=== PATIENT | male | born 1995 | race Caucasian/White ===

== ENCOUNTER 2018-08-16 02:51 | Inpatient (IN) | payer OTHER ==
[~2018-08-16] VITALS: Ht 182.9 cm; Wt 63.5 kg
[~2018-08-16 02:51] MED LIST: ACET500 PO; ATOM60 PO; Bactrim Ds Tab1 EACH PO; CEPH500 PO; CLON.1 PO; CLON.2 PO; CLON.3 PO; CLON1 PO; DOCU100 PO; HYDACE5 PO; IBUP400 PO; IBUP600 PO; Keflex500 MG PO; OLAN2.5 PO; OLAN20; OLAN7.5 PO; PRODEXEL PO; RISP1 PO; TENEX1 MG PO; Ventolin/Prove6.7 GM INH; Zithromax250 MG PO
[2018-08-16 04:30] LABS: BASOPHILS ABSOLUTE AUTO 0.05 K/mm3 (0.00-0.23); BASOPHILS PERCENT AUTO 0 % (0-2); EOSINOPHILS PERCENT AUTO 1 % (0-6); Hematocrit 47.4 % (37.0-53.0); IMMATURE GRAN ABSOLUTE AUTO 0.04 K/mm3 (0.00-0.10); IMMATURE GRAN PERCENT AUTO 0 % (0-1); LYMPHOCYTES ABSOLUTE AUTO 2.87 K/mm3 (0.84-5.20); LYMPHOCYTES PERCENT AUTO 21 % (21-46); MONOCYTES ABSOLUTE AUTO 1.32 K/mm3 (0.16-1.47); MONOCYTES PERCENT AUTO 9 % (4-13); Mean Corpuscular HGB 28.3 pg (26.0-34.0); Mean Corpuscular HGB Conc 33.8 g/dL (31.5-36.5); Mean Corpuscular Volume 84 fL (80-100); Mean Platelet Volume 10.2 fL (9.1-12.4); NEUTROPHILS ABSOLUTE AUTO 9.51 K/mm3 (1.96-9.15); NEUTROPHILS PERCENT AUTO 68 % (41-73); Platelet Count 267 K/mm3 (150-400); RDW Coefficient Variation 12.9 % (11.7-14.2); RDW Standard Deviation 39.8 fL (35.1-46.3); Red Blood Cell Count 5.66 M/mm3 (4.30-5.90); White Blood Cell Count 13.99 K/mm3 (4.00-11.30)
[2018-08-16 04:47] LABS: Alanine Aminotransfer (ALT/SGP 21 U/L (12-78); Albumin, Blood 4.6 g/dL (3.4-5.0); Alk Phos 112 U/L (50-136); Anion Gap 8 mmol/L (6-16); Aspartate Aminotrans (AST/SGOT 18 U/L (12-37); Bilirubin, Total 0.8 mg/dL (0.1-1.0); Blood Urea Nitrogen 13 mg/dL (8-24); Bun/Creatinine Ratio 15.3 (12.0-20.0); CO2, Blood 25 mmol/L (21-32); Calcium, Blood 9.9 mg/dL (8.5-10.1); Chloride, Blood 106 mmol/L (98-108); Creatinine, Blood 0.85 mg/dL (0.60-1.20); Globulin, Blood 4.5 g/dL (2.2-4.0); Glomerular Filtration Rate >60 (60-); Glucose, Blood 66 mg/dL (70-99); Potassium, Blood 3.1 mmol/L (3.5-5.5); Sodium, Blood 139 mmol/L (136-145); Total Protein, Blood 9.1 g/dL (6.4-8.2)
--- NOTE | 2018-08-16 06:46 | NUR ---
ADMISSION: REPORT RECIEVED FROM ED RN. PT TO UNIT AT ABOUT 0540. UPON ASSESSMENT PT IS IN NO VISABLE DISTRESS. REPORTS PAIN AT R INDEX FINGER. HR 105, OTHERWISE VSS. PT ORIENTED TO ROOM. AYALA Geronimo RN, DRESSED PT FINGER WITH GUAZE. REDNESS AND SWELLING, SCANT DRAINAGE. ANTIBIOTICS STARTED. SURGICAL CONSULT CALLED. WILL CTM AND REPORT TO DAY RN.
[2018-08-16] MEDS ORDERED: CLIN300 PO (12:09)
[2018-08-16] MEDS ORDERED: Bactrim Ds Tab1 EACH PO (12:09)
[2018-08-16 13:05] LABS: Hematocrit 41.7 % (37.0-53.0); Hemoglobin 14.2 g/dL (13.5-17.5); Mean Corpuscular HGB 28.3 pg (26.0-34.0); Mean Corpuscular HGB Conc 34.1 g/dL (31.5-36.5); Mean Corpuscular Volume 83 fL (80-100); Mean Platelet Volume 10.4 fL (9.1-12.4); Platelet Count 236 K/mm3 (150-400); RDW Coefficient Variation 12.9 % (11.7-14.2); RDW Standard Deviation 38.8 fL (35.1-46.3); Red Blood Cell Count 5.02 M/mm3 (4.30-5.90); White Blood Cell Count 13.08 K/mm3 (4.00-11.30)
[2018-08-16 13:23] LABS: Alanine Aminotransfer (ALT/SGP 20 U/L (12-78); Albumin, Blood 3.7 g/dL (3.4-5.0); Alk Phos 90 U/L (50-136); Anion Gap 8 mmol/L (6-16); Aspartate Aminotrans (AST/SGOT 20 U/L (12-37); Bilirubin, Total 0.7 mg/dL (0.1-1.0); Blood Urea Nitrogen 12 mg/dL (8-24); Bun/Creatinine Ratio 12.7 (12.0-20.0); CO2, Blood 22 mmol/L (21-32); Calcium, Blood 8.7 mg/dL (8.5-10.1); Chloride, Blood 109 mmol/L (98-108); Creatinine, Blood 0.95 mg/dL (0.60-1.20); Globulin, Blood 3.7 g/dL (2.2-4.0); Glomerular Filtration Rate >60 (60-); Glucose, Blood 115 mg/dL (70-99); Potassium, Blood 3.6 mmol/L (3.5-5.5); Sodium, Blood 139 mmol/L (136-145); Total Protein, Blood 7.4 g/dL (6.4-8.2)
--- NOTE | 2018-08-16 16:37 | NUR ---
SHIFT SUMMARY PT A&OX4, VSS. POD#1 I&D RIGHT INDEX FINGER, SPLINT, GAUZE & JAYSON WRAP, APPEARS CDI. PAIN MANAGED WITH 10 MG NORCO. ATUL PO, DENIES N&V. INDEPENDENTIN ROOM AND OFF UNIT. VOIDING WELL. WILL CTM & TX PER EMAR UNTIL REPORT GIVEN TO ONCOMING NOC RN.
--- NOTE | 2018-08-17 04:09 | NUR ---
SHIFT SUMMARY PT A&O X4 T/O SHIFT. NO ACUTE CHANGES. POD# 1 I&D R INDEX FINGER; DRESSING AND SPLINT INTACT; PT REPEATEDLY ENCOURAGED TO LEAVE JAYSON WRAP INTACT; PT NOTED TO BE UNWRAPPING AND RE-WRAPPING JAYSON OVER HAND/PALM. NO DRAINAGE NOTED. PAIN MANGED PER EMAR. PT ENCOURAGED TO ELEVATE, REST AND ICE HAND TO HELP MANGE PAIN AND SWELLING. PPPX4. PT INDEPENDENT; OFF UNIT X1. PT FREQUENTLY NOTED EATING CANDY OR REQUESTED ITEMS FROM PANTRY. CALL LIGHT IN REACH; PT DEMONSTRATES USE. PT REPORTED INSOMNIA AND REQUESTED SLEEP AID; TELEPHONE ORDER FROM DR. MCCORMICK RECIEVED FOR ATIVAN. WCTM UNTIL REPORT TO DAY SHIFT RN.
[2018-08-17 05:27] LABS: Hematocrit 40.8 % (37.0-53.0); Hemoglobin 13.6 g/dL (13.5-17.5); Mean Corpuscular HGB 27.7 pg (26.0-34.0); Mean Corpuscular HGB Conc 33.3 g/dL (31.5-36.5); Mean Corpuscular Volume 83 fL (80-100); Mean Platelet Volume 10.7 fL (9.1-12.4); Platelet Count 233 K/mm3 (150-400); RDW Coefficient Variation 13.2 % (11.7-14.2); RDW Standard Deviation 39.6 fL (35.1-46.3); Red Blood Cell Count 4.91 M/mm3 (4.30-5.90); White Blood Cell Count 12.54 K/mm3 (4.00-11.30)
[2018-08-17 05:38] LABS: Vancomycin, Trough 11.4 ug/mL (5.0-10.0)
[2018-08-17 05:47] LABS: Anion Gap 8 mmol/L (6-16); Blood Urea Nitrogen 10 mg/dL (8-24); Bun/Creatinine Ratio 11.6 (12.0-20.0); CO2, Blood 21 mmol/L (21-32); Calcium, Blood 8.5 mg/dL (8.5-10.1); Chloride, Blood 107 mmol/L (98-108); Creatinine, Blood 0.86 mg/dL (0.60-1.20); Glomerular Filtration Rate >60 (60-); Glucose, Blood 106 mg/dL (70-99); Potassium, Blood 3.6 mmol/L (3.5-5.5); Sodium, Blood 136 mmol/L (136-145)
--- NOTE | 2018-08-17 09:41 | NUR ---
08/17/18 0941 Jenny Shields VERIFICATIONS: EDIT CHART PER ORD.ROSANGELA.
--- NOTE | 2018-08-17 16:28 | NUR ---
SUMM- PT A/O X3, SLEPT UNTIL 1100 THIS AM- AGGITATED AT TIMES WHEN AWOKEN. FIDGITY DURING WAKING HOURS, AND EDGEY. SPEECH HARD TO UNDERSTAND, FAST AND THICK. PT HAS A LARGE APPETITE REQUESTS FOOD EVERY HOUR WHILE AWAKE. DRINKS LG AMOUNTS OF PEPSI AND NOTHING ELSE. DECLINED PAIN MEDS, HAD NOTABLE PAIN DURING DRESSING CHANGE WITH DR TAY, BUT ONCE WRAPPED, DOESN'T HURT. DR INSTRUCTED PT ON DOING HIS OWN DRSG CHANGE AND CLEANING WITH H2O2. SUPPLIES IN PT'S ROOM FOR HIM TO TAKE HOME FOR ANTICIPATED DC TOMORROW. PT GOES OUT TO SMOKE EVERY 2-4 HOURS. COMES BACK HAPPY AND RELAXED, LIKEY SMOKING "DAB" HE MENTIONED TO RN EARLIER. WILL REPORT DAYS EVENTS TO NOC RN.
--- NOTE | 2018-08-18 07:32 | NUR ---
SUMMARY PT WITH NEW IV SITE TONIGHT. IV ANTIBIOTICS INFUSING. PT PLANS FOR DISCHARGE HOME TODAY. NO REQUEST FOR PAIN MEDS TONIGHT. WHEN AWAKE. EATING FREQUENTLY AND DRINKING PEPSI WITHOUT NAUSEA.
--- NOTE | 2018-08-18 11:16 | NUR ---
PT DISCHARGED. BELONGINGS WITH PATIENT. VERBALIZED UNDERSTANDING OF DISCHARGE INSTRUCTIONS. WALKED OUT INDEPENDENTLY. PRESCRTITIONS SLIPS WITH PT.
== END 2018-08-18 11:20 | disposition home or self-care (01) | DRG 854 ==
LOC: ER 02:51 → SURS 04:40
PROVIDERS: Emergency Medicine; Internal Medicine; Orthopaedic Surgery; ADMIT Internal Medicine
PROC: 0LQ70ZZ Repair Right Hand Tendon, Open Approach (ICD-10-PCS; principal; 2018-08-16 07:45)
DX: A41.02 Sepsis due to Methicillin resistant Staphylococcus aureus (principal); L02.511 Cutaneous abscess of right hand; S66.320A Laceration of extensor muscle, fascia and tendon of right index finger at wrist and hand level, initial encounter; F32.9 Major depressive disorder, single episode, unspecified; F90.9 Attention-deficit hyperactivity disorder, unspecified type; E87.6 Hypokalemia; F17.210 Nicotine dependence, cigarettes, uncomplicated
CPT/HCPCS: 36415; 73120; 80048; 80053; 80202; 83605; 85025; 85027; 87040; 87070; 87075; 87077; 87147; 87186; 87205; 96374; 99285-25; J0690; J0696; J2250; J2543; J3010; J3370; J7050; J7120; Q0163

== ENCOUNTER 2019-05-07 20:04 | Emergency (ER) | payer OTHER ==
[~2019-05-07] VITALS: Ht 182.9 cm; Wt 68.0 kg
[~2019-05-07 20:04] MED LIST changes: +CLIN300 PO
[2019-05-07] MEDS ORDERED: CRUTCH4 XX (21:47)
[2019-05-07] MEDS ORDERED: KETO10 PO (21:47)
== END 2019-05-07 22:10 | disposition home or self-care (01) ==
LOC: ER 20:04
DX: S93.402A Sprain of unspecified ligament of left ankle, initial encounter (principal); X50.9XXA Other and unspecified overexertion or strenuous movements or postures, initial encounter; F17.210 Nicotine dependence, cigarettes, uncomplicated
CPT/HCPCS: 73610; 99283-25

== ENCOUNTER → 2019-07-03 | Outpatient (CLI) | payer OTHER ==
[~2019-07-03] MED LIST changes: +CRUTCH4 XX; +KETO10 PO
[2019-07-03 12:19] LABS: BASOPHILS ABSOLUTE AUTO 0.04 K/mm3 (0.00-0.23); BASOPHILS PERCENT AUTO 0 % (0-2); EOSINOPHILS PERCENT AUTO 0 % (0-6); Hematocrit 47.5 % (37.0-53.0); Hemoglobin 15.7 g/dL (13.5-17.5); IMMATURE GRAN ABSOLUTE AUTO 0.06 K/mm3 (0.00-0.10); IMMATURE GRAN PERCENT AUTO 0 % (0-1); LYMPHOCYTES ABSOLUTE AUTO 2.24 K/mm3 (0.84-5.20); LYMPHOCYTES PERCENT AUTO 15 % (21-46); MONOCYTES ABSOLUTE AUTO 2.13 K/mm3 (0.16-1.47); MONOCYTES PERCENT AUTO 14 % (4-13); Mean Corpuscular HGB 28.1 pg (26.0-34.0); Mean Corpuscular HGB Conc 33.1 g/dL (31.5-36.5); Mean Corpuscular Volume 85 fL (80-100); Mean Platelet Volume 11.6 fL (9.1-12.4); NEUTROPHILS ABSOLUTE AUTO 10.39 K/mm3 (1.96-9.15); NEUTROPHILS PERCENT AUTO 70 % (41-73); Platelet Count 179 K/mm3 (150-400); RDW Coefficient Variation 13.9 % (11.7-14.2); RDW Standard Deviation 43.4 fL (35.1-46.3); Red Blood Cell Count 5.59 M/mm3 (4.30-5.90); White Blood Cell Count 14.86 K/mm3 (4.00-11.30)
== END | disposition home or self-care (01) ==
LOC: LAB SHORT 11:18 → LAB 11:18
PROVIDERS: Family Medicine
DX: R50.9 Fever, unspecified (principal)
CPT/HCPCS: 85025

== ENCOUNTER → 2020-03-17 | Outpatient (CLI) | payer OTHER ==
[2020-03-21 13:10] LABS: CHLAMYDIA TRACHOMATIS, NAA Positive (Negative); NEISSERIA GONORRHOEAE, NAA Positive (Negative)
== END | disposition home or self-care (01) ==
LOC: LAB EV 17:28 → LAB SHORT 17:28
PROVIDERS: Family Medicine
DX: R30.9 Painful micturition, unspecified (principal)
CPT/HCPCS: 87077; 87086; 87185; 87491; 87591

== ENCOUNTER 2020-05-17 02:32 | Emergency (ER) | payer OTHER ==
[~2020-05-17] VITALS: Ht 182.9 cm; Wt 68.0 kg
== END 2020-05-17 04:00 | disposition home or self-care (01) ==
LOC: ER 02:32
DX: J40 Bronchitis, not specified as acute or chronic (principal); F17.210 Nicotine dependence, cigarettes, uncomplicated
CPT/HCPCS: 94640; 99283

== ENCOUNTER → 2022-05-27 | Outpatient (CLI) | payer OTHER ==
[2022-05-27 14:14] LABS: BASOPHILS ABSOLUTE AUTO 0.05 K/mm3 (0.00-0.23); BASOPHILS PERCENT AUTO 0 % (0-2); EOSINOPHILS ABSOLUTE AUTO 0.07 K/mm3 (0.00-0.68); EOSINOPHILS PERCENT AUTO 0 % (0-6); Hematocrit 45.6 % (37.0-53.0); Hemoglobin 15.6 g/dL (13.5-17.5); IMMATURE GRAN ABSOLUTE AUTO 0.08 K/mm3 (0.00-0.10); IMMATURE GRAN PERCENT AUTO 1 % (0-1); LYMPHOCYTES ABSOLUTE AUTO 2.01 K/mm3 (0.84-5.20); LYMPHOCYTES PERCENT AUTO 12 % (21-46); MONOCYTES PERCENT AUTO 7 % (4-13); Mean Corpuscular HGB 28.7 pg (26.0-34.0); Mean Corpuscular HGB Conc 34.2 g/dL (31.5-36.5); Mean Corpuscular Volume 84 fL (80-100); Mean Platelet Volume 9.8 fL (9.1-12.4); NEUTROPHILS ABSOLUTE AUTO 13.08 K/mm3 (1.96-9.15); NEUTROPHILS PERCENT AUTO 80 % (41-73); Platelet Count 246 K/mm3 (150-400); RDW Coefficient Variation 14.1 % (11.7-14.2); RDW Standard Deviation 42.9 fL (35.1-46.3); Red Blood Cell Count 5.43 M/mm3 (4.30-5.90); White Blood Cell Count 16.39 K/mm3 (4.00-11.30)
[2022-05-27 14:23] LABS: Albumin, Blood 4.2 g/dL (3.4-5.0); Bilirubin, Total 0.4 mg/dL (0.1-1.0); Bun/Creatinine Ratio 13.9 (12.0-20.0); Calcium, Blood 9.3 mg/dL (8.5-10.1); Creatinine, Blood 0.79 mg/dL (0.60-1.20); Globulin, Blood 4.4 g/dL (2.2-4.0); Potassium, Blood 3.5 mmol/L (3.5-5.5); Total Protein, Blood 8.6 g/dL (6.4-8.2)
== END | disposition home or self-care (01) ==
LOC: LAB 14:09 → LAB SHORT 14:09
PROVIDERS: Physician Assistant Medical
DX: I89.1 Lymphangitis (principal)
CPT/HCPCS: 80053; 85025

== ENCOUNTER → 2022-05-28 | Outpatient (CLI) | payer OTHER ==
[2022-05-28 09:15] LABS: BASOPHILS ABSOLUTE AUTO 0.05 K/mm3 (0.00-0.23); BASOPHILS PERCENT AUTO 0 % (0-2); EOSINOPHILS ABSOLUTE AUTO 0.07 K/mm3 (0.00-0.68); EOSINOPHILS PERCENT AUTO 1 % (0-6); Hematocrit 45.7 % (37.0-53.0); Hemoglobin 15.6 g/dL (13.5-17.5); IMMATURE GRAN ABSOLUTE AUTO 0.05 K/mm3 (0.00-0.10); IMMATURE GRAN PERCENT AUTO 0 % (0-1); LYMPHOCYTES ABSOLUTE AUTO 1.83 K/mm3 (0.84-5.20); LYMPHOCYTES PERCENT AUTO 15 % (21-46); MONOCYTES ABSOLUTE AUTO 0.83 K/mm3 (0.16-1.47); MONOCYTES PERCENT AUTO 7 % (4-13); Mean Corpuscular HGB 28.9 pg (26.0-34.0); Mean Corpuscular HGB Conc 34.1 g/dL (31.5-36.5); Mean Corpuscular Volume 85 fL (80-100); NEUTROPHILS ABSOLUTE AUTO 9.26 K/mm3 (1.96-9.15); NEUTROPHILS PERCENT AUTO 77 % (41-73); Platelet Count 253 K/mm3 (150-400); RDW Coefficient Variation 14.1 % (11.7-14.2); RDW Standard Deviation 43.5 fL (35.1-46.3); White Blood Cell Count 12.09 K/mm3 (4.00-11.30)
== END | disposition home or self-care (01) ==
LOC: LAB SHORT 09:11 → LAB 09:11
PROVIDERS: Physician Assistant Medical
DX: I89.1 Lymphangitis (principal)
CPT/HCPCS: 85025

== ENCOUNTER 2025-08-05 05:21 | Inpatient (IN) | payer OTHER ==
[~2025-08-05] VITALS: Ht 182.9 cm; Wt 73.2 kg
[2025-08-05 06:10] LABS: BASOPHILS ABSOLUTE AUTO 0.06 K/mm3 (0.00-0.23); BASOPHILS PERCENT AUTO 0 % (0-2); EOSINOPHILS ABSOLUTE AUTO 0.01 K/mm3 (0.00-0.68); EOSINOPHILS PERCENT AUTO 0 % (0-6); Hematocrit 44.1 % (37.0-53.0); Hemoglobin 15.1 g/dL (13.5-17.5); IMMATURE GRAN ABSOLUTE AUTO 0.06 K/mm3 (0.00-0.10); IMMATURE GRAN PERCENT AUTO 0 % (0-1); LYMPHOCYTES ABSOLUTE AUTO 1.20 K/mm3 (0.84-5.20); LYMPHOCYTES PERCENT AUTO 6 % (21-46); MONOCYTES ABSOLUTE AUTO 1.50 K/mm3 (0.16-1.47); MONOCYTES PERCENT AUTO 7 % (4-13); Mean Corpuscular HGB Conc 34.2 g/dL (31.5-36.5); Mean Corpuscular Volume 82 fL (80-100); NEUTROPHILS ABSOLUTE AUTO 17.48 K/mm3 (1.96-9.15); NEUTROPHILS PERCENT AUTO 86 % (41-73); NRBC ABSOLUTE 0.00 K/mm3 (0.00-0.02); NRBC Auto 0.0 /100 WBC (0.0-0.2); Platelet Count 235 K/mm3 (150-400); RDW Coefficient Variation 13.5 % (11.7-14.2); RDW Standard Deviation 40.5 fL (35.1-46.3)
[2025-08-05 06:30] LABS: Alanine Aminotransfer (ALT/SGP 20.0 U/L (12-78); Albumin, Blood 4.2 g/dL (3.4-5.0); Albumin/Globulin Ratio 1.0 (0.8-1.8); Anion Gap 10.0 mmol/L (3-11); Aspartate Aminotrans (AST/SGOT 26.0 U/L (12-37); Bilirubin, Total 1.0 mg/dL (0.1-1.0); Blood Urea Nitrogen 15.0 mg/dL (8-24); CO2, Blood 22.0 mmol/L (21-32); Calcium, Blood 9.8 mg/dL (8.5-10.1); Chloride, Blood 106.0 mmol/L (98-108); Creatinine, Blood 0.68 mg/dL (0.60-1.20); Globulin, Blood 4.0 g/dL (2.2-4.0); Glucose, Blood 113.0 mg/dL (70-99); Potassium, Blood 4.1 mmol/L (3.5-5.5); Sodium, Blood 134.0 mmol/L (136-145); Total Protein, Blood 8.2 g/dL (6.4-8.2)
[2025-08-05] MEDS ORDERED: Ondansetron HCl 2 MG / ML 2ML Vial IV ONE (08:20)
[2025-08-05] MEDS ORDERED: Ketorolac Tromethamine 15mg Vial IV ONE (08:20)
[2025-08-05] MEDS ORDERED: Morphine Sulfate 4 MG/1 ML Injection IV ONE (08:20)
[2025-08-05] MEDS ORDERED: NS 1,000 ML IV SCH ×2 (08:20→11:25)
[2025-08-05] MEDS ORDERED: Vancomycin (Pharmacy Consult) IV PRN (09:40)
[2025-08-05] MEDS ORDERED: CeFAZolin Sodium 2,000 MG in NS 100 ML IV ONE (10:00)
[2025-08-05] MEDS ORDERED: Vancomycin (Pharmacy Consult) IV SCH (11:10)
[2025-08-05] MEDS ORDERED: FLU VACC TS2025-26(6MOS UP)/PF 45 MCG/0.5 ML SYRINGE IM SCH (11:10)
[2025-08-05 13:21] VITALS: BP 155/93
[2025-08-05] MEDS ORDERED: FentaNYL Citrate 50 MCG/ML 2 ML Injection IV PRN ×2 (13:50→16:00)
[2025-08-05] MEDS ORDERED: Morphine Sulfate 4 MG/1 ML Injection IV PRN (13:50)
[2025-08-05] MEDS ORDERED: LORazepam 2 MG/ML 1ML Injection IV PRN (15:35)
[2025-08-05] MEDS ORDERED: HYDROmorphone HCl/Pf 1MG SYR IV PRN (15:35)
[2025-08-05 15:57] VITALS: BP 153/107
[2025-08-05] MEDS ORDERED: FentaNYL Citrate 50 MCG/ML 2 ML Injection IV ONE (16:00)
[2025-08-05] MEDS ORDERED: CeFAZolin Sodium 2,000 MG in NS 100 ML IV SCH (16:00)
--- NOTE | 2025-08-05 19:35 | NUR ---
ADMIT/SHIFT SUMMARY PT ADMITTED TODAY D/T CELLULITIS OF RIGHT KNEE. DR. GERMAN CONSULTED, PT TO BE NPO AT MIDNIGHT FOR POSSIBLE I&D TOMORROW. PT PAIN MANAGED WITH DILAUDED, PT REFUSED FENTANYL. PT ADMITS TO INJECTING METH ON 08/03/25. PT A&OX4, NORMALLY INDEPENDENT, BUT HAS BED REST ORDERED. PT EDUCATED ON IMPORTANCE OF USING THE CALL LIGHT AND NOT TO GET OOB WITH OUT HELP OF NURSING STAFF.
[2025-08-05 19:53] VITALS: BP 147/91
[2025-08-05] MEDS ORDERED: NS 250 ML IV PRN (20:05)
[2025-08-05] MEDS ORDERED: Lactobacil 2-S.Thermo-Bifido 1 1 Cap PO SCH (21:00)
[2025-08-05 23:47] VITALS: BP 149/102
[2025-08-06] VITALS (16 sets, daily range): BP systolic 123–158; BP diastolic 82–103
[2025-08-06] MEDS ORDERED: Piperacillin/Tazobactam Sod 3.375 GM in NS 100 ML IV SCH
[2025-08-06 05:12] LABS: BASOPHILS ABSOLUTE AUTO 0.10 K/mm3 (0.00-0.23); BASOPHILS PERCENT AUTO 0 % (0-2); EOSINOPHILS ABSOLUTE AUTO 0.11 K/mm3 (0.00-0.68); EOSINOPHILS PERCENT AUTO 0 % (0-6); Hematocrit 42.2 % (37.0-53.0); Hemoglobin 14.7 g/dL (13.5-17.5); IMMATURE GRAN ABSOLUTE AUTO 0.19 K/mm3 (0.00-0.10); IMMATURE GRAN PERCENT AUTO 1 % (0-1); LYMPHOCYTES ABSOLUTE AUTO 1.88 K/mm3 (0.84-5.20); LYMPHOCYTES PERCENT AUTO 8 % (21-46); MONOCYTES ABSOLUTE AUTO 2.50 K/mm3 (0.16-1.47); MONOCYTES PERCENT AUTO 10 % (4-13); Mean Corpuscular HGB Conc 34.8 g/dL (31.5-36.5); Mean Corpuscular Volume 83 fL (80-100); NEUTROPHILS ABSOLUTE AUTO 20.25 K/mm3 (1.96-9.15); NEUTROPHILS PERCENT AUTO 81 % (41-73); NRBC ABSOLUTE 0.00 K/mm3 (0.00-0.02); NRBC Auto 0.0 /100 WBC (0.0-0.2); Platelet Count 250 K/mm3 (150-400); RDW Coefficient Variation 13.6 % (11.7-14.2); RDW Standard Deviation 40.9 fL (35.1-46.3)
[2025-08-06 05:33] LABS: Alanine Aminotransfer (ALT/SGP 19.0 U/L (12-78); Albumin, Blood 3.1 g/dL (3.4-5.0); Albumin/Globulin Ratio 0.7 (0.8-1.8); Anion Gap 10.0 mmol/L (3-11); Aspartate Aminotrans (AST/SGOT 21.0 U/L (12-37); Bilirubin, Total 1.2 mg/dL (0.1-1.0); Blood Urea Nitrogen 7.0 mg/dL (8-24); CO2, Blood 23.0 mmol/L (21-32); Calcium, Blood 9.2 mg/dL (8.5-10.1); Chloride, Blood 102.0 mmol/L (98-108); Creatinine, Blood 0.73 mg/dL (0.60-1.20); Globulin, Blood 4.4 g/dL (2.2-4.0); Glucose, Blood 101.0 mg/dL (70-99); Potassium, Blood 4.0 mmol/L (3.5-5.5); Sodium, Blood 131.0 mmol/L (136-145); Total Protein, Blood 7.5 g/dL (6.4-8.2)
--- NOTE | 2025-08-06 06:04 | NUR ---
NO ACUTE CHANGES DURING SHIFT. PATIENT ALERT AND ORIENTED X4, ABLE TO MAKE NEEDS KNOWN. PATIENT ABLE TO TURN SELF IN BED; BEDREST ORDER IN PLACE. RLE CELLULITIS.. KNEE ELEVATED MUCH PATIENT ALLOWED. PAIN MEDICATION GIVEN-SEE EMAR. PATIENT ON ROOM AIR SATING >95%. NPO AFTER MIDNIGHT. IV ANTIBIOTICS GIVEN. BED IN LOW POSITION WITH WHEELS LOCKED. CALL LIGHT WITHIN REACH.
[2025-08-06] MEDS ORDERED: Enoxaparin 40 MG/0.4 ML SYR SC SCH (09:00)
[2025-08-06 11:40] LABS: Vancomycin, Trough 13.4 ug/mL (5.0-10.0)
--- NOTE | 2025-08-06 13:25 | NUR ---
PT TAKEN TO SURGERY.
[2025-08-06] MEDS ORDERED: Midazolam HCl 1MG / ML 2ML Vial ONE (13:57)
[2025-08-06] MEDS ORDERED: FentaNYL Citrate 50 MCG/ML 2 ML Injection ONE (13:57)
[2025-08-06] MEDS ORDERED: HYDROmorphone HCl/Pf 1MG SYR ONE (14:55)
--- NOTE | 2025-08-06 18:09 | NUR ---
SHIFT SUMMARY PT IS A/OX4. BEDREST AT THIS TIME. I&D COMPLETED THIS AFTERNOON. HEMOVAC AND IMMOBILIZER IN PLACE. USING URINAL AT BEDSIDE. MEDICATED FOR PAIN WITH FENTANYL AND DILUADID PER OCT. IV ANTIBIOTICS GIVEN PER OCT.
[2025-08-06] MEDS ORDERED: Vancomycin (Pharmacy Consult) IV SCH (19:20)
--- NOTE | 2025-08-07 04:18 | NUR ---
PATIENT ALERT AND ORIENTED X4, ABLE TO MAKE NEEDS KNOWN. IMMOBILIZER AND HEMOVAC TO R KNEE. IV ANTIBIOTICS GIVEN. MEDICATED FOR PAIN AND ANXIETY, SEE EMAR. PATIENT USES URINAL. BED IN LOW POSITION WITH WHEELS LOCKED. CALL LIGHT WITHIN REACH.
[2025-08-07 04:45] VITALS: BP 145/102
[2025-08-07 05:22] LABS: BASOPHILS ABSOLUTE AUTO 0.08 K/mm3 (0.00-0.23); BASOPHILS PERCENT AUTO 0 % (0-2); EOSINOPHILS ABSOLUTE AUTO 0.17 K/mm3 (0.00-0.68); EOSINOPHILS PERCENT AUTO 1 % (0-6); Hematocrit 38.0 % (37.0-53.0); Hemoglobin 13.0 g/dL (13.5-17.5); IMMATURE GRAN ABSOLUTE AUTO 0.10 K/mm3 (0.00-0.10); IMMATURE GRAN PERCENT AUTO 1 % (0-1); LYMPHOCYTES ABSOLUTE AUTO 1.94 K/mm3 (0.84-5.20); LYMPHOCYTES PERCENT AUTO 10 % (21-46); MONOCYTES ABSOLUTE AUTO 1.79 K/mm3 (0.16-1.47); MONOCYTES PERCENT AUTO 9 % (4-13); Mean Corpuscular HGB Conc 34.2 g/dL (31.5-36.5); Mean Corpuscular Volume 83 fL (80-100); NEUTROPHILS ABSOLUTE AUTO 14.94 K/mm3 (1.96-9.15); NEUTROPHILS PERCENT AUTO 79 % (41-73); NRBC ABSOLUTE 0.00 K/mm3 (0.00-0.02); NRBC Auto 0.0 /100 WBC (0.0-0.2); Platelet Count 261 K/mm3 (150-400); RDW Coefficient Variation 13.5 % (11.7-14.2); RDW Standard Deviation 40.8 fL (35.1-46.3)
[2025-08-07 05:39] LABS: Alanine Aminotransfer (ALT/SGP 18.0 U/L (12-78); Albumin, Blood 2.9 g/dL (3.4-5.0); Albumin/Globulin Ratio 0.7 (0.8-1.8); Anion Gap 8.0 mmol/L (3-11); Aspartate Aminotrans (AST/SGOT 15.0 U/L (12-37); Bilirubin, Total 0.5 mg/dL (0.1-1.0); Blood Urea Nitrogen 9.0 mg/dL (8-24); CO2, Blood 27.0 mmol/L (21-32); Calcium, Blood 9.3 mg/dL (8.5-10.1); Chloride, Blood 102.0 mmol/L (98-108); Creatinine, Blood 0.73 mg/dL (0.60-1.20); Globulin, Blood 4.4 g/dL (2.2-4.0); Glucose, Blood 109.0 mg/dL (70-99); Potassium, Blood 3.7 mmol/L (3.5-5.5); Sodium, Blood 133.0 mmol/L (136-145); Total Protein, Blood 7.3 g/dL (6.4-8.2)
[2025-08-07 07:18] VITALS: BP 107/77
[2025-08-07 11:21] LABS: Vancomycin, Trough 16.8 ug/mL (5.0-10.0)
[2025-08-07 16:03] VITALS: BP 124/76
--- NOTE | 2025-08-07 18:30 | NUR ---
SHIFT SUMMARY PT IS A/OX4. IMMOBILIZER AND HEMOVAC TO R KNEE. HEMOVAC WITH VERY LITTLE OUTPUT. POSITIVE BLOOD CULTURES, RECIEVING IV ANTIBIOTICS PER MAR. MEDICATED WITH DILAUDID, FENTANYL, AND OXYCODONE FOR PAIN PER MAR. USING URINAL AT BEDSIDE. WEIGHT BEARING AT TOLERATED.
[2025-08-07 19:40] VITALS: BP 126/78
--- NOTE | 2025-08-08 01:23 | NUR ---
PT INTERACTION PT RAISING BED UP HIGH TO MAXIMUM HEIGHT. PT EDUCATED ON IMPORTANCE OF FALL RPECAUTIONS AND DANGERS OF A FALL FROM THAT HEIGHT. PT VERBALIZED UNDERSTANDING TO EDUCATION, BUT CONTINUES TO LEAVE BED AT MAXIMUM HEIGHT AND REFUSES TO LOWER BED FURTHER.
[2025-08-08 03:04] VITALS: BP 123/83
--- NOTE | 2025-08-08 06:29 | NUR ---
UNIT TRUST MANAGER SUMMARY PT A&OX4, VSS. ABLE TO COMMUNICATE NEEDS APPROPRIATELY. PT HAS BEEN ASLEEP FOR MOST OF THE SHIFT. CHEST RISE/RESPIRATIONS NOTED. PT CONTINUES TO RECEIVE OXYCODONE, DILAUDID, AND ATIVAN PER EMAR. HEMOVAC TO R KNEE CONTINUES TO HAVE EXTREMELY LITTLE, ALMOST NO OUTPUT. THE SCANT OUTPUT NOTED APPEARS TO BE SANGUINEOUS, THOUGH PT CONTINUES TO BE VERY RESISTANT AND IRRITATED AT STAFF ON ATTEMPTS TO CHECK HEMOVAC. PT HAS REMAINED IRRITATED AT STAFF THROUGHOUT THE SHIFT AND HAS YELLED PROFANITIES AT STAFF DURING ROUNDS, MEDICATION PASSES, AND LAB DRAWS. BED WHEELS LOCKED, BED RAILS UP X 2, PERSONAL BELONGINGS AND CALL LIGHT WITHIN REACH FOR SAFETY.
[2025-08-08 06:37] LABS: BASOPHILS ABSOLUTE AUTO 0.06 K/mm3 (0.00-0.23); BASOPHILS PERCENT AUTO 1 % (0-2); EOSINOPHILS ABSOLUTE AUTO 0.28 K/mm3 (0.00-0.68); EOSINOPHILS PERCENT AUTO 3 % (0-6); Hematocrit 38.0 % (37.0-53.0); Hemoglobin 12.8 g/dL (13.5-17.5); IMMATURE GRAN ABSOLUTE AUTO 0.03 K/mm3 (0.00-0.10); IMMATURE GRAN PERCENT AUTO 0 % (0-1); LYMPHOCYTES ABSOLUTE AUTO 1.52 K/mm3 (0.84-5.20); LYMPHOCYTES PERCENT AUTO 14 % (21-46); MONOCYTES ABSOLUTE AUTO 1.17 K/mm3 (0.16-1.47); MONOCYTES PERCENT AUTO 11 % (4-13); Mean Corpuscular HGB Conc 33.7 g/dL (31.5-36.5); Mean Corpuscular Volume 82 fL (80-100); NEUTROPHILS ABSOLUTE AUTO 7.59 K/mm3 (1.96-9.15); NEUTROPHILS PERCENT AUTO 71 % (41-73); NRBC ABSOLUTE 0.00 K/mm3 (0.00-0.02); NRBC Auto 0.0 /100 WBC (0.0-0.2); Platelet Count 292 K/mm3 (150-400); RDW Coefficient Variation 13.3 % (11.7-14.2); RDW Standard Deviation 39.9 fL (35.1-46.3)
[2025-08-08 07:02] LABS: Alanine Aminotransfer (ALT/SGP 19.0 U/L (12-78); Albumin, Blood 2.8 g/dL (3.4-5.0); Albumin/Globulin Ratio 0.6 (0.8-1.8); Anion Gap 5.0 mmol/L (3-11); Aspartate Aminotrans (AST/SGOT 18.0 U/L (12-37); Bilirubin, Total 0.5 mg/dL (0.1-1.0); Blood Urea Nitrogen 8.0 mg/dL (8-24); CO2, Blood 28.0 mmol/L (21-32); Calcium, Blood 9.3 mg/dL (8.5-10.1); Chloride, Blood 105.0 mmol/L (98-108); Creatinine, Blood 0.69 mg/dL (0.60-1.20); Globulin, Blood 4.6 g/dL (2.2-4.0); Glucose, Blood 121.0 mg/dL (70-99); Potassium, Blood 4.0 mmol/L (3.5-5.5); Sodium, Blood 134.0 mmol/L (136-145); Total Protein, Blood 7.4 g/dL (6.4-8.2)
[2025-08-08 07:48] VITALS: BP 126/79
--- NOTE | 2025-08-08 10:38 | NUR ---
INITIAL ASSESSMENT: Patient is awake lying in bed. He is alert and oriented x4. Reports 8/10 right knee pain, medicated with Dialudid. HRR.LS Dim in the bases, biox WNL on RA. BT+. PPP. Patient has lumps scattered T/O his torso and extremitites. Immoblizer with castro wrap underneath to the right leg. Leg is rewraapped. He has a hemovac in place draining serro-sang. He denies other needs at this time. Call light in reach.
[2025-08-08 15:24] VITALS: BP 127/79
[2025-08-08] MEDS ORDERED: Vitamin D1000 UNI1 PO (15:49)
--- NOTE | 2025-08-08 17:49 | NUR ---
Summary: Patient has been alert and oriented, irritable T/O the shift. He has had C/O pain in his RLE, he was medicated with oxycodone and dilaudid. HRR, VSS. Biox WNL on . Dressing to RLE CDI with immoblizer in place. No acute changes this shift. Report given to Adal NYE.
[2025-08-08 19:36] VITALS: BP 135/86
--- NOTE | 2025-08-09 02:29 | NUR ---
CARE ASSUMPTION REPORT RECEIVED FROM VIVIAN MCFADDEN RN. ASSUMING CARE OF PT AT THIS TIME.
[2025-08-09 05:08] LABS: BASOPHILS ABSOLUTE AUTO 0.07 K/mm3 (0.00-0.23); BASOPHILS PERCENT AUTO 1 % (0-2); EOSINOPHILS ABSOLUTE AUTO 0.26 K/mm3 (0.00-0.68); EOSINOPHILS PERCENT AUTO 4 % (0-6); Hematocrit 42.5 % (37.0-53.0); Hemoglobin 14.4 g/dL (13.5-17.5); IMMATURE GRAN ABSOLUTE AUTO 0.06 K/mm3 (0.00-0.10); IMMATURE GRAN PERCENT AUTO 1 % (0-1); LYMPHOCYTES ABSOLUTE AUTO 1.61 K/mm3 (0.84-5.20); LYMPHOCYTES PERCENT AUTO 22 % (21-46); MONOCYTES ABSOLUTE AUTO 1.00 K/mm3 (0.16-1.47); MONOCYTES PERCENT AUTO 14 % (4-13); Mean Corpuscular HGB Conc 33.9 g/dL (31.5-36.5); Mean Corpuscular Volume 82 fL (80-100); NEUTROPHILS ABSOLUTE AUTO 4.31 K/mm3 (1.96-9.15); NEUTROPHILS PERCENT AUTO 59 % (41-73); NRBC ABSOLUTE 0.00 K/mm3 (0.00-0.02); NRBC Auto 0.0 /100 WBC (0.0-0.2); Platelet Count 291 K/mm3 (150-400); RDW Coefficient Variation 13.2 % (11.7-14.2); RDW Standard Deviation 40.1 fL (35.1-46.3)
[2025-08-09 05:13] VITALS: BP 138/94
[2025-08-09 05:22] LABS: Anion Gap 11.0 mmol/L (3-11); Blood Urea Nitrogen 9.0 mg/dL (8-24); CO2, Blood 25.0 mmol/L (21-32); Calcium, Blood 9.3 mg/dL (8.5-10.1); Chloride, Blood 104.0 mmol/L (98-108); Creatinine, Blood 0.82 mg/dL (0.60-1.20); Glucose, Blood 100.0 mg/dL (70-99); Potassium, Blood 3.9 mmol/L (3.5-5.5); Sodium, Blood 136.0 mmol/L (136-145)
--- NOTE | 2025-08-09 06:20 | NUR ---
OIL WELL SERVICES SUPERVISOR SUMMARY PT A&OX4, VSS. ABLE TO COMMUNICATE NEEDS APPROPRIATELY. PT HAS BEEN MOSTLY ASLEEP SINCE ASSUMPTION OF CARE. CHEST RISE/RESPIRATIONS NOTED. PT CONTINUING TO RECEIVE, NICOTINE GUM, ATIVAN, AND PAIN MEDS PER EMAR. IMMOBILIZIER AND HEMOVAC CONTINUE TO BE IN PLACE, DRAINING MINIMAL SEROSANGUINEOUS OUTPUT. RLE DRESSING CDI. PT CONTINUING TO RECEIVE VANCO AND ZOSYN PER EMAR. BED RAILS UP X 2, BED WHEELS LOCKED, PERSONAL BELONGINGS AND CALL LIGHT WITHIN REACH FOR SAFETY.
[2025-08-09 12:04] LABS: Vancomycin, Trough 23.5 ug/mL (5.0-10.0)
[2025-08-09 15:30] VITALS: BP 133/86
[2025-08-09] MEDS ORDERED: Ketorolac Tromethamine 30mg Vial IV PRN (17:30)
--- NOTE | 2025-08-09 18:42 | NUR ---
NO ACUTE CHANGES THIS SHIFT. PT PAIN HAS BEEN TREATED PER EMAR. WEIGHT TOLORATED ON RIGHT KNEE WITH IMMOBILIZER IN PLACE. PT TOLORATED AMBULATION WELL THIS SHIFT. DRESSING C/D/I.
[2025-08-09 19:37] VITALS: BP 141/92
[2025-08-10 04:20] VITALS: BP 123/76
[2025-08-10 05:31] LABS: Hematocrit 42.4 % (37.0-53.0); Hemoglobin 14.2 g/dL (13.5-17.5); Mean Corpuscular HGB Conc 33.5 g/dL (31.5-36.5); Mean Corpuscular Volume 85 fL (80-100); NRBC ABSOLUTE 0.00 K/mm3 (0.00-0.02); NRBC Auto 0.0 /100 WBC (0.0-0.2); Platelet Count 371 K/mm3 (150-400); RDW Coefficient Variation 13.2 % (11.7-14.2); RDW Standard Deviation 41.0 fL (35.1-46.3)
--- NOTE | 2025-08-10 05:53 | NUR ---
Shift Summary - Events: Patient was irritable during the night but remained cooperative with care. Rested in bed with eyes closed. Respirations are even and unlabored. - Orientation: A/Ox4. - Ambulation: Independent; right leg weight-bearing as tolerated. - Medication: Taken whole with water. - Toileting: Continent x2.
[2025-08-10 06:10] LABS: Anion Gap 8.0 mmol/L (3-11); Blood Urea Nitrogen 13.0 mg/dL (8-24); CO2, Blood 30.0 mmol/L (21-32); Calcium, Blood 10.3 mg/dL (8.5-10.1); Chloride, Blood 101.0 mmol/L (98-108); Creatinine, Blood 0.84 mg/dL (0.60-1.20); Glucose, Blood 104.0 mg/dL (70-99); Potassium, Blood 4.5 mmol/L (3.5-5.5); Sodium, Blood 134.0 mmol/L (136-145)
[2025-08-10 08:06] VITALS: BP 127/96
[2025-08-10] MEDS ORDERED: HYDMOR4 PO (13:11)
[2025-08-10] MEDS ORDERED: LINE600 PO (13:12)
--- NOTE | 2025-08-10 16:11 | NUR ---
NO ACUTE CHANGES THIS SHIFT. PT WILL D/C ONCE CLEARED BY [facility]TH[facility]. IMMOBILIZER IN PLACE. PT ABLE TO TOLORATE AMBULATION AND IS AT HIS BASELINE PER PHYSICAL THERAPY. PT HAS BEEN COOPERATIVE THIS SHIFT. HEMVAC DRAIN IN PLACE WITH LITTLE TO NO OUTPUT FOR 24HRS. TREATED PAIN PER EMAR
[2025-08-10] MEDS ORDERED: VISBIOME 112.51 EACH PO (17:33)
--- NOTE | 2025-08-10 18:13 | NUR ---
PT DISCHARGED HOME. [facility] CLEARED PT FOR DISCHARGE. DISCHARGE INSTRUCTIONS INCLUDING DRAIN REMOVAL SITE AND NEW MEDICATIONS DISCUSSED WITH PT. PT VERBALIZED UNDERSTANDING. IV REMOVED. PT NO LONGER NEEDS TO WEAR KNEE IMMOBILIZER AND WILL FOLLOW UP WITH [facility] IN CLINIC FRIDAY OR FRIDAY OF NEXT WEEK. PT DECLINED WHEELCHAIR TRANSPORT TO PRIVATE VEHICLE AND WALKED TO PRIVATE VEHICLE. MEDICATIONS FAXED TO [facility] AND PAPER PRESCRIPTION HANDED TO PT FOR PAIN MEDICATION.
== END 2025-08-10 17:43 | disposition home or self-care (01) | DRG 854 ==
LOC: ER 05:21 → MEDS 11:07 → ERHOLD 11:07 → MEDS 13:12
PROVIDERS: Emergency Medicine; Internal Medicine; Orthopaedic Surgery; ADMIT Family Medicine
PROC: 3E03329 Introduction of Other Anti-infective into Peripheral Vein, Percutaneous Approach (ICD-10-PCS; 2025-08-05)
PROC: 3E02340 Introduction of Influenza Vaccine into Muscle, Percutaneous Approach (ICD-10-PCS; 2025-08-05)
PROC: 0MBN0ZZ Excision of Right Knee Bursa and Ligament, Open Approach (ICD-10-PCS; principal; 2025-08-06 12:45)
DX: A41.02 Sepsis due to Methicillin resistant Staphylococcus aureus (principal); E87.1 Hypo-osmolality and hyponatremia; L03.115 Cellulitis of right lower limb; F17.210 Nicotine dependence, cigarettes, uncomplicated; Z66 Do not resuscitate; R73.9 Hyperglycemia, unspecified; F12.10 Cannabis abuse, uncomplicated; F32.A Depression, unspecified; F15.10 Other stimulant abuse, uncomplicated; M70.41 Prepatellar bursitis, right knee; Z90.89 Acquired absence of other organs; Z23 Encounter for immunization; Z87.81 Personal history of (healed) traumatic fracture; Z98.890 Other specified postprocedural states; Z86.14 Personal history of Methicillin resistant Staphylococcus aureus infection; Z79.899 Other long term (current) drug therapy
CPT/HCPCS: 36415; 73701; 80048; 80053; 80202; 82565; 83605; 85025; 85027; 87040; 87070; 87075; 87077; 87147; 87186; 87205; 93005; 93010; 96365-59; 96375; 97116; 97161; 99285-25; A9270; J0690; J1171; J1650; J1885; J2060; J2250; J2270; J2405; J2543; J2704; J3010; J3373; J7030; J7040; J7050; Q9967